=== PATIENT | male | born 1985 | race Caucasian/White ===

== ENCOUNTER 2019-06-20 17:32 | Emergency (ER) | payer OTHER, SELFPAY ==
[2019-06-20 17:41] VITALS: BP 119/70; PULSE 66; RESP 20; O2SAT 99
--- NOTE | 2019-06-20 17:52 | ED_ITS ---
HPI - Dental/Oral General Chief complaint: Dental/Oral Stated complaint: toothache History of Present Illness HPI Narrative: Extraction of tooth 20 or 19 four days ago. complains tasting and smelling rotten meat for last day or so. His pain has gradually decreased since extraction. Yesterday 7. Today 3.-4 no fevers/chills. Related Data Home Medications Medication Instructions Recorded Confirmed escitalopram oxalate 10 mg PO DAILY 06/20/19 06/20/19 Allergies Allergy/AdvReac Type Severity Reaction Status Date / Time codeine Allergy Mild Verified 05/17/10 16:03 Review of Systems Constitutional: Constitutional: Reports no additional constitutional complain ts ENT: Denies dysphagia [facility] Social History Social History (Updated 06/20/19 @ 18:03 by Js Verduzco MD) Smoking status: Former smoker Alcohol intake: current Substance use: never Exam Const: General: no acute distress HENMT: Face and sinus: normal facial exam (no swelling of face, jaw or neck. No redness or tenderness. ) Throat: posterior oropharynx normal Other: Extraction site of tooth #19 or #20 is lucas. The surrounding gum is not swollen, red or tender. There is not cheek, mandibular tenderness. Neck: Neck: normal visual inspection and no lymphadenopathy Course Course Emergency Course: Pt advised to gently rinse mouth with dilute hydrogen peroxide 4x/day and f/u with dentist. Vital Signs Vital signs: Vital Signs Pulse Rate 66 06/20/19 17:41 Respiratory Rate 20 06/20/19 17:41 Blood Pressure 119/70 06/20/19 17:41 Pulse Oximetry 99 06/20/19 17:41 Pulse Rate 66 06/20/19 17:41 Respiratory Rate 20 06/20/19 17:41 Blood Pressure 119/70 06/20/19 17:41 Pulse Oximetry 99 06/20/19 17:41 MDM - Dental/Oral MDM Narrative Medical decision making narrative: Necrotic gingiva or build up of debris in socket which is anaerobically breaking down, causing smell and odor. DDX includes deep abscess which is unlikely in view of the decrease in pain today from yesterday, and lack of gum swelling/ no tenderness on exam. Differential Diagnosis Differential diagnosis: Likely gingival abscess and dental abscess Discharge Plan Discharge Clinical Impression: Gingivitis Patient Disposition: Home, Self-Care Condition: Stable Instructions: Antibiotic Form, Toothache (ED) Additional Instructions: Swish and spit out hydrogen peroxide mixed 1/4 cup with 1/4 water. Perform 4x/day. Contact dentist tomorrow regarding need for follow up. Prescriptions: No Action escitalopram oxalate 10 mg tablet 10 mg PO DAILY RF: 0 Follow-up/Referrals: Geroge Hilario MD [Primary Care Provider] - Time of Disposition: 18:00 Discharge Date/Time: 06/20/19 18:05
[2019-06-20 18:03] VITALS: RESP 17
== END 2019-06-20 18:05 | disposition home or self-care (01) ==
PROVIDERS: Emergency Provider Family Medicine; PCP Family Medicine
DX: K05.10 Chronic gingivitis, plaque induced (principal); Z87.891 Personal history of nicotine dependence
CPT/HCPCS: 99281; 99282

== ENCOUNTER 2020-04-20 16:01 | Outpatient (CLI) | payer OTHER, SELFPAY ==
[2020-04-20 17:29] LABS: SARS-CoV-2 Ag Negative (Negative)
[2020-04-20 17:30] LABS: Influenza Control Valid (Valid)
== END 2020-04-20 16:02 | disposition home or self-care (01) ==
LOC: CHSLAB 16:06
PROVIDERS: PCP Family Medicine; Visit Provider Family Medicine
DX: R05 Cough (principal)
CPT/HCPCS: 87426; 87804

== ENCOUNTER 2020-04-21 11:24 | Outpatient (CLI) | payer OTHER, SELFPAY ==
[2020-04-24 18:34] LABS: SARS-CoV-2 RNA PCR Positive
== END 2020-04-21 11:25 | disposition home or self-care (01) ==
LOC: CHSLAB 11:26
PROVIDERS: PCP Family Medicine; Visit Provider Family Medicine
DX: U07.1 COVID-19 (principal); R50.9 Fever, unspecified
CPT/HCPCS: 87635; C9803; U0003

== ENCOUNTER 2020-07-06 20:43 | Emergency (ER) | payer OTHER, SELFPAY ==
[2020-07-06 21:07] VITALS: BP 135/83; PULSE 72; RESP 20; TEMP 36.3; O2SAT 98
--- NOTE | 2020-07-06 21:26 | ED.DENTAL ---
HPI - Dental/Oral General Chief complaint: Dental/Oral Stated complaint: tooth infection Source: patient Mode of arrival: ambulatory Limitations: no limitations History of Present Illness HPI Narrative: this is a 34-year-old male presents with some dental pain has some lower premolar left dental pain with surrounding gum inflammation pain he rates it a 10/10 and does have an appointment with dentist tomorrow afternoon has tried [id number] pain medication with minimal relief. Currently there is no shortness of breath no chest pain no abdominal pain does have some nausea with no vomiting. MD Complaint: tooth pain Teeth map: 1. dental pain with surrounding gum inflammation Onset (ago): day(s) Duration: constant Severity: severe Severity scale (1-10): 10 Relieving factors: nothing Exacerbating factors: chewing Context: history of dental caries Associated symptoms: gum swelling Treatment prior to arrival: oral analgesic Related Data Home Medications Medication Instructions Recorded Confirmed escitalopram oxalate 10 mg PO DAILY 06/20/19 07/06/20 Allergies Allergy/AdvReac Type Severity Reaction Status Date / Time codeine Allergy Mild Palpitation Verified 07/06/20 21:17 s Review of Systems Review of Systems: All systems reviewed & are unremarkable except as noted in HPI and below PMFSH Past Medical History Medical History Headache, migraine Social History Social History Smoking status: Former smoker Alcohol intake: current Substance use: never Gender identity (if verbalized by the patient): Male Exam Const: General: no acute distress and alert Orientation/consciousness: patient oriented x3 HENMT: Head: normal to inspection Other: Left lower premolar dental pain with surrounding gum inflammation tender with palpation with some left submandibular gland inflammation and tenderness. Eyes: Conjunctivae: conjunctivae normal Pupils: Equal, round and reactive pupils present EOM: EOMs intact bilaterally Neck: Neck: normal visual inspection, no meningeal signs and lymphadenopathy Chest: Chest palpation & inspection: normal inspection of the chest Resp: Effort & Inspection: normal respiratory effort Auscultation: clear to auscultation bilaterally Cardio: Rate: regular rate Rhythm: regular rhythm GI: GI Palp: Yes Soft to palpation Neuro: General: patient oriented x3 and moves all extremities Extrem: General: normal to inspection Psych: Mental Status: mental status grossly normal Course Course Emergency Course: Patient given IM Toradol, antibiotic amoxicillin and Zofran for nausea Vital Signs Vital signs: Vital Signs Temperature 36.3 C L 07/06/20 21:07 Pulse Rate 72 07/06/20 21:07 Respiratory Rate 20 07/06/20 21:07 Blood Pressure 135/83 07/06/20 21:07 Pulse Oximetry 98 07/06/20 21:07 Temperature 36.3 C L 07/06/20 21:07 Pulse Rate 72 07/06/20 21:07 Respiratory Rate 20 07/06/20 21:07 Blood Pressure 135/83 07/06/20 21:07 Pulse Oximetry 98 07/06/20 21:07 Critical Care Time Critical Care Time Critical Care Time: No Discharge Plan Discharge Clinical Impression: Toothache, Dental abscess Patient Disposition: Home, Self-Care Condition: Stable Instructions: Antibiotic Form, Dental Abscess (ED) Additional Instructions: take medicine as prescribed, and keep follow-up appointment with dentist as scheduled. Prescriptions: New ondansetron HCl [Zofran] 4 mg tablet 4 mg PO Q6H PRN (Reason: nausea and vomiting) Qty: 10 RF: 0 amoxicillin 500 mg tablet 500 mg PO TID Qty: 30 RF: 0 tramadol [Ultram] 50 mg tablet 50 mg PO Q6H PRN (Reason: pain) Qty: 30 RF: 0 No Action escitalopram oxalate 10 mg tablet 10 mg PO DAILY RF: 0 Follow-up/Referrals: George Hilario MD [Primary Care Provider] -
[2020-07-06] MEDS: ONDANSETRON HCL ODT 4 MG TABLET PO (21:30)
[2020-07-06] MEDS: KETOROLAC (*BKC) 60 MG/2 ML VIAL IM (21:30)
[2020-07-06] MEDS: AMOXICILLIN 500 MG CAPSULE PO (21:30)
[2020-07-06 21:54] VITALS: BP 130/88; PULSE 70; RESP 20; TEMP 36.7; O2SAT 98
== END 2020-07-06 22:00 | disposition home or self-care (01) ==
PROVIDERS: Emergency Provider Emergency Medicine; PCP Family Medicine
DX: K08.89 Other specified disorders of teeth and supporting structures (principal); K04.7 Periapical abscess without sinus
CPT/HCPCS: 96372; 99283; A9270; J1885

== ENCOUNTER 2021-05-21 16:10 | Outpatient (CLI) | payer OTHER, SELFPAY ==
--- NOTE | ~2021-05-21 | XR_ITS ---
EXAMINATION: XR chest 2V EXAM DATE: 05/21/2021 17:03 INDICATION: Posterior chest pain that travels to anterior chest x 4days. TECHNIQUE: Frontal and lateral projections of the chest obtained and reviewed. There is no prior trevin dy for comparison. FINDINGS: The lungs are clear. There are no pleural effusions. The cardiomediastinal silhouette is within normal limits. There is no pneumothorax suspected. The bones and soft tissues are unremarkab le. IMPRESSION: Normal chest x-ray exam. Reviewed, dictated and finalized at location A. [employer] IMPRESSION: Normal chest x-ray exam.
[2021-05-21 16:32] LABS: Basophils Absolute Auto 0.09 K/mm3 (0.00-0.10); Basophils Percent Auto 0.7 % (0.0-1.0); Eosinophils Absolute Auto 0.11 K/mm3 (0.02-0.50); Eosinophils Percent Auto 0.9 % (1.0-6.0); Hematocrit 48.4 % (40.0-54.0); Hemoglobin 16.6 g/dL (14.0-18.0); Immature Granulocyte Absolute 0.29 K/mm3 (0.00-0.00); Immature Granulocyte Percent A 2.3 % (0.0-0.0); Mean Corpuscular HGB Conc 34.3 g/dL (32.0-36.0); Mean Corpuscular Hemoglobin 31.6 pg (27.0-31.0); Mean Platelet Volume 9.4 fl (8.7-11.0); Neutrophils Absolute Auto 6.7 K/mm3 (1.7-7.2); Neutrophils Percent Auto 53.1 % (50.0-70.0); Platelet Count Result 265 K/mm3 (150-420); Red Blood Count 5.26 M/mm3 (4.70-6.10); Red Cell Distribution Width 11.6 % (11.6-14.4); White Blood Count 12.6 K/mm3 (4.8-10.8)
[2021-05-21 16:42] LABS: D Dimer 0.41 mg/L (0.19-0.50)
[2021-05-21 16:54] LABS: Creatine Kinase 48 U/L (39-308)
[2021-05-21 16:58] LABS: Troponin I < 4.0 ng/L (0.00-60.4)
[2021-05-21 19:36] LABS: Alanine Aminotransferase 65 U/L (16-63); Albumin Level 3.8 g/dL (3.4-5.0); Alkaline Phosphatase 66 U/L (46-116); Anion Gap 13 mmol/L (8-16); Aspartate Amino Transferase 21 U/L (15-37); Bilirubin,Total 0.3 mg/dL (0.00-1.00); Blood Urea Nitrogen 17 mg/dL (7-18); Calcium 8.6 mg/dL (8.5-10.1); Carbon Dioxide 26 mmol/L (21-32); Chloride 103 mmol/L (98-108); Estimated Glomerular Filt Rate > 60; Glucose 101 mg/dL (70-99); Osmolality Calculated 295 mOsm/kg (285-295); Potassium 3.8 mmol/L (3.5-5.1); Sodium 142 mmol/L (136-145); Total Protein 7.7 g/dL (6.4-8.2)
== END 2021-05-21 16:11 | disposition home or self-care (01) ==
LOC: CHSIMG 16:14
PROVIDERS: PCP Family Medicine; Visit Provider Family Medicine
DX: R07.9 Chest pain, unspecified (principal); M79.10 Myalgia, unspecified site; Z86.16 Personal history of COVID-19
CPT/HCPCS: 36415; 71046; 80053; 82550; 82553; 84484; 85025; 85380